=== PATIENT | male | born 1980 | race Caucasian/White ===

== ENCOUNTER 2016-07-02 18:15 | Inpatient (IN) | payer MEDICARE ==
[~2016-07-02] VITALS: Ht 190.5 cm; Wt 95.5 kg
[2016-07-05] MEDS ORDERED: VITAMIN B1100 MG PO (11:13)
[2016-07-05] MEDS ORDERED: PAMELOR DPS25 MG PO (11:14)
[2016-07-05] MEDS ORDERED: CATAPRES-DPS0.1 MG PO (11:14)
[2016-07-05] MEDS ORDERED: BUPRENORPHINE HC8 MG PO (11:14)
[2016-07-05] MEDS ORDERED: ONDANSETRON ODT8 MG PO (11:15)
[2016-07-05] MEDS ORDERED: ATIVAN-DPS2 MG PO (11:15)
[2016-07-05] MEDS ORDERED: MIRAPEX1.5 MG PO (11:15)
[2016-07-05] MEDS ORDERED: PRILOSEC DPS20 MG PO (11:15)
[2016-07-05] MEDS ORDERED: NEURONTIN DPS300 MG PO (11:16)
[2016-07-05] MEDS ORDERED: KLOR-CON M2020 ME1 PO (11:16)
[2016-07-05] MEDS ORDERED: FOLVITE-DPS1 MG PO (11:16)
[2016-07-05] MEDS ORDERED: CARAFATE DPS1 GM PO (11:16)
[2016-07-05] MEDS ORDERED: NORVASC DPS10 MG PO (11:17)
[2016-07-05] MEDS ORDERED: SLOW-MAG71.5 MG PO (11:17)
--- NOTE | 2016-07-05 14:00 | ER ---
ADMIT: 07/02/2016 RM/LOC: 415 [facility] MR#: [id number] [address] [id number] CHRISTELLE CASIANO [facility] [address] [place] [address] Emergency Room Report SEX: M AGE: 35 : 1980 DATE: 07/02/2016 ADDENDUM: See T-sheet for complete H and P. ADDENDUM: A 35-year-old male with a history of narcotic addiction and alcohol addiction presents to the ER complaining of symptoms of nausea, vomiting, and diarrhea. He presented to an outside Emergency Department, [place] 4 days ago, because he felt terrible and wanted to get off his addictions narcotic and alcohol. Emergency room physician there consulted a pain specialist. They came up with a treatment plan for the patient. He was started on diprenorphine, nortriptyline, clonidine, and gabapentin. He already had Zofran. Despite his attempts to taking Zofran, he still had nausea, vomiting, and large amounts of watery diarrhea over the past several days. He does appear dehydrated here. He was given 2 L normal saline while in the Emergency Department. He was also given Zofran for nausea. The patient was given Valium and clonidine 0.1 mg twice in the Emergency Department for his hypertension. He had very little improvement in his blood pressure with that and he was then given Zosyn 2 mg p.o. The patient is noted to have low potassium at 2.6 and he had 40 mEq of potassium chloride given p.o. in the Emergency Department. At this point, I do not believe the patient is stable to be discharged home and he would benefit from further management of his dehydration, hypertensive urgency, and nausea, vomiting, and diarrhea. I spoke to Dr. Rodgers, who will be admitting the patient. DIAGNOSES: 1. Nausea and vomiting. 2. Diarrhea. 3. Narcotic withdrawal. 4. Alcohol withdrawal. 5. Hypertensive urgency. Felipe Wilson MD/ vinaey JOB #: [id number] CC: Sierra Rodgers MD, Attending Physician Sierra Rodgers MD, Family Physician
--- NOTE | 2016-07-08 13:23 | NUR ---
Follow up phone called placed to patient. Pt states he is doing "really good." States he was at [facility] and filled out the paperwork. States he has a doctors appointment today. Deny any needs or concerns.
--- NOTE | 2016-07-13 07:58 | DS ---
ADMIT: 07/02/2016 RM/LOC: 415 [facility] MR#: [id number] [address] [phone] CHRISTELLE CASIANO [address] [place] [address] Discharge Summary SEX: M AGE: 35 : 1980 ADMISSION DATE: 07/02/2016 DISCHARGE DATE: 07/04/2016 DISCHARGE DIAGNOSES: History of narcotic addiction, alcohol addiction with severe dehydration secondary to diarrhea, nausea, and vomiting as well as a known history of Crohn disease. HISTORY OF PRESENT ILLNESS: Well documented in his H and P. LABORATORY AND RADIOGRAPHIC ASSESSMENT: His white count on admission was 7.4, hemoglobin 11.5, and platelet count of 265,000. Urinalysis showed no evidence of abnormalities. Sodium 141, potassium 2.6. On admission BUN and creatinine 5 and 0.9. Blood sugar of 103. His liver function studies were normal. At the time of discharge potassium 3.1. His hepatitis C antibody was negative. HIV was negative. His EKG showed normal sinus rhythm. HOSPITAL COURSE: This gentleman is a city-call patient. He was admitted by Dr. Rodgers with nausea, vomiting, dehydration. He has stopped drinking and is using drugs and was having some symptoms of withdrawal. He had been sober for approximately 4 days. He presented with dehydration and he received alcohol withdrawal precaution were instituted. He was placed initially on TCU. He had further testing of HIV hepatitis C. his potassium was replaced. He had slow, but sure improvement. On 07/04 he was subsequently discharged back to home. He is to remain on potassium supplementation. He was continued on his routine home medications and he will have follow up with his primary care physician. Discharged in stable condition. Sandra Richmond MD/ vianey JOB #: [id number] CC: Sandra Richmond MD, Attending Physician Sandra Richmond MD, Family Physician
--- NOTE | 2016-07-14 16:42 | HP ---
ADMIT: 07/02/2016 RM/LOC: 415 [facility] MR#: [id number] ACC#: [id number] 2620 [facility] [address] [place] [phone] CHRISTELLE FRANCE [facility] [address] [place] [address] History and Physical SEX: M AGE: 35 : 1980 DATE OF SERVICE: CHIEF COMPLAINT: Nausea, vomiting, and diarrhea. HISTORY OF PRESENT ILLNESS: Mr. France is a 35-year-old man with history of narcotic addiction and alcohol addiction, who came to ER yesterday complaining of severe diarrhea, nausea, and vomiting. His last alcoholic drink was around 4 days back, and he was detoxing and staying in [place] with his family. He originally lives near [place] and follows up with Dr. North. Upon arrival to the ER, he was also noted to have hypertensive urgency with blood pressure in the high 90s and diastolic more than 100. He was started on nicardipine drip for his blood pressure and aggressively rehydrated. Today, he feels much better and he wants to try eating. He also has history of severe Crohn disease and is on Humira as an outpatient. He has had four bowel resections and his diarrhea is better today. PAST MEDICAL HISTORY: 1. Crohn disease. 2. Depression. 3. Anxiety. 4. Gastroesophageal reflux disease. 5. Chronic narcotic use. 6. Chronic alcoholic use. 7. Chronic marijuana use. 8. Gout. PAST SURGICAL HISTORY: 1. Appendectomy. 2. Four bowel surgeries. 3. Cholecystectomy. ALLERGIES: NO KNOWN DRUG ALLERGIES. HOME MEDICATIONS: 1. Thiamine. 2. Clonidine 0.1 mg every 8 hours. 3. Buprenorphine 8 mg every 8 hours. 4. Nortriptyline 25 mg at bedtime. 5. Zofran. 6. Omeprazole. 7. Lorazepam 4 mg every 8 hours as needed. 8. Pramipexole 1 mg t.i.d. 9. Gabapentin 300 mg every 8 hours. 10.Sucralfate 1 g t.i.d. p.r.n. FAMILY HISTORY: Significant for seizures in his mother and heart disease in his uncles. REVIEW OF SYSTEMS: A 10-point review of systems is negative except as ADMIT: 07/02/2016 RM/LOC: 415 [facility] MR#: [id number] [address] [id number] CHRISTELLE FRANCE [address] [place] [address] History and Physical SEX: M AGE: 35 : 1980 mentioned in HPI. PHYSICAL EXAMINATION: VITAL SIGNS: Current temperature 97.6, heart rate 83, respirations 12, blood pressure 156/111, 90% on room air. GENERAL: No acute distress. HEENT: Head, normocephalic and atraumatic. Extraocular movements intact. Oral mucosa moist. LYMPH: No palpable anterior/posterior cervical or supraclavicular lymphadenopathy. CHEST: Clear to auscultation bilaterally. No wheezes, rales, or rhonchi. CARDIOVASCULAR: S1 and S2 heard. Regular rate and rhythm. Tachycardia. ABDOMEN: Soft. Positive bowel sounds. Mild diffuse tenderness. PSYCH: Normal affect. Memory intact. DATA REVIEW: His CBC today shows white count of 6.3, hemoglobin 11.1, platelets of 251. CMP shows low potassium of 2.8, creatinine 0.7, low albumin of 2.7. ASSESSMENT AND PLAN: 1. Opioid withdrawal. 2. Alcohol withdrawal. 3. Hypertensive urgency. 4. Hypokalemia. 5. Crohn disease. 6. Depression. 7. Anxiety. We will admit him to PCU status, he is currently on CIWA protocol. I started him on nicardipine drip and is still requiring to control his blood pressure. Continue his outpatient medications. He is on buprenorphine for opiate withdrawal. We will replace his potassium. Given his history of recreational drug use, we will also check HIV test and hepatitis C antibody. We will advance his diet as tolerated. Sierra Rodgers MD/ vianey JOB #: [id number] CC: Sierra Rodgers, Attending Physician Sierra Rodgers, Family Physician
== END 2016-07-04 16:14 | disposition home or self-care (01) | DRG 641 ==
LOC: ER 18:15 → 4PCU 22:22
PROVIDERS: ADMIT Internal Medicine Infectious Disease
PROC: HZ2ZZZZ Detoxification Services for Substance Abuse Treatment (ICD-10-PCS; principal; 2016-07-02)
DX: E86.0 Dehydration (principal); K50.90 Crohn's disease, unspecified, without complications; F10.239 Alcohol dependence with withdrawal, unspecified; F11.23 Opioid dependence with withdrawal; I16.0 Hypertensive urgency; E87.6 Hypokalemia; R19.7 Diarrhea, unspecified; F32.9 Major depressive disorder, single episode, unspecified; F41.9 Anxiety disorder, unspecified; K21.9 Gastro-esophageal reflux disease without esophagitis; F12.90 Cannabis use, unspecified, uncomplicated

== ENCOUNTER 2016-07-09 13:37 | Emergency (ER) | payer MEDICARE ==
[~2016-07-09 13:37] MED LIST: ATIVAN-DPS2 MG PO; BUPRENORPHINE HC8 MG PO; CARAFATE DPS1 GM PO; CATAPRES-DPS0.1 MG PO; FOLVITE-DPS1 MG PO; KLOR-CON M2020 ME1 PO; MIRAPEX1.5 MG PO; NEURONTIN DPS300 MG PO; NORVASC DPS10 MG PO; ONDANSETRON ODT8 MG PO; PAMELOR DPS25 MG PO; PRILOSEC DPS20 MG PO; SLOW-MAG71.5 MG PO; VITAMIN B1100 MG PO
--- NOTE | 2016-07-12 07:42 | ER ---
ADMIT: 07/09/2016 RM/LOC: ER [facility] MR#: [id number] 2620 [facility] [address] [place] [id number] CHRISTELLE CASIANO [facility] [address] [place] [address] Emergency Room Report SEX: M AGE: 35 : 1980 DATE: 07/09/2016 TIME: 1337 hours. Please refer to my T-sheet for complete H and P. HISTORY OF PRESENT ILLNESS: Briefly, the patient is a 35-year-old that comes in with vomiting and anxious, says that he has been trying to come off multiple things including benzodiazepines, opiates, alcohol, marijuana, and others he states. He has been 10 days clean, but he has been taking buprenorphine prescribed by Dr. North he says and Ativan. He says he is going to run out of buprenorphine. He only has 2 pills left. He cannot get it refilled until Monday, today is Monday, and he wants me to refill it. He says he feels anxious. He has had vomiting and diarrhea. PHYSICAL EXAMINATION: VITAL SIGNS: Blood pressure 167/119, pulse 122, respirations 20, temp 97.4, and saturating 99%. GENERAL: He is anxious. HEENT: Slightly dry mouth. Throat clear. LUNGS: Clear. HEART: Tachy, regular. ABDOMEN: Soft. SKIN: No rash. NEURO: He is slightly confrontational, but nonfocal. EMERGENCY DEPARTMENT COURSE: I did give him a liter of normal saline bolus, which he stopped abruptly about senior living. I gave him Zofran 4 IV and Ativan 1 mg IV. I did tell him I do not refill the buprenorphine. He will need to talk to his primary. They normally have a plan for him. The pharmacy would not refill it apparently because he needed preauthorization. They, however, called and the pharmacy said they would refill 4. When they found that out, he wanted his IV pulled, he was leaving against medical advice. He did not wait for his labs to return. His CBC had come back, it was normal except hemoglobin 11.9. Chemistries were not back upon him leaving. He took the IV out, he left very agitated. Again, I told him I just do not refill those. He said "I wasn't ADMIT: 07/09/2016 RM/LOC: ER [facility] MR#: [id number] 2620 [facility] [address] [place] [id number] CHRISTELLE CASIANO [facility] [address] [place] [address] Emergency Room Report SEX: M AGE: 35 : 1980 doing anything" for him and he left. ASSESSMENT: 1. Nausea, vomiting, and diarrhea. 2. Opiate withdraw. 3. Anxiety. 4. History of Crohn disease. 5. Substance abuse history. 6. Out of buprenorphine. PLAN: He left against medical advice, but we did talk to him on the way out. I told him to follow up with Dr. North. Return if problems. Sriram Andrade MD/ vianey JOB #: [id number] CC: Fadi Tucker MD, Attending Physician Sarwat North MD, Family Physician
== END 2016-07-09 15:04 | disposition left against medical advice (07) ==
LOC: ER 13:37
DX: F11.23 Opioid dependence with withdrawal (principal); F41.9 Anxiety disorder, unspecified; R11.2 Nausea with vomiting, unspecified; R19.7 Diarrhea, unspecified; Z79.899 Other long term (current) drug therapy